=== PATIENT | male | born 1945 | race Caucasian/White ===

== ENCOUNTER 2019-03-14 09:52 | Emergency (ER) | payer MEDICARE ==
[~2019-03-14] VITALS: Ht 165.1 cm; Wt 72.6 kg
[~2019-03-14 09:52] MED LIST: AMIT50; AMIT75 PO; ASPI325; ASPI81CH; AZAT50; CLOP75; DIAZ10 PO; HYDACE5 PO; IBUP800 PO; Isosorbide Dini30 MG PO; Isosorbide Mono30 MG; METO25ER PO; METO50; OMEP20ER PO; PRAV40 PO; PRED10 PO; RABE20; RANO500T PO; ROSU10TA PO; SUCR1 PO
[2019-03-14] MEDS ORDERED: OXYC5 PO (11:11)
[2019-03-14] MEDS ORDERED: QUETIAPINE FUMA25 MG PO (11:11)
[2019-03-14] MEDS ORDERED: Isosorbide Mono60 MG PO (11:11)
[2019-03-14] MEDS ORDERED: CELECOXIB200 MG PO (11:12)
[2019-03-14] MEDS ORDERED: PLAVIX75 MG PO (11:13)
[2019-03-14] MEDS ORDERED: Clonazepam0.5 MG PO (11:13)
[2019-03-14] MEDS ORDERED: PANTOPRAZOLE SO40 M2 PO (11:13)
[2019-03-14] MEDS ORDERED: COQ-10100 MG PO (11:14)
[2019-03-14] MEDS ORDERED: Fibercon625 MG PO (11:14)
[2019-03-14] MEDS ORDERED: LINZESS145 MCG PO (11:15)
== END 2019-03-14 12:44 | disposition home or self-care (01) ==
LOC: ER 09:52
DX: K59.00 Constipation, unspecified (principal); K21.9 Gastro-esophageal reflux disease without esophagitis; E78.5 Hyperlipidemia, unspecified; I25.10 Atherosclerotic heart disease of native coronary artery without angina pectoris; Z91.09 Other allergy status, other than to drugs and biological substances; Z79.899 Other long term (current) drug therapy; Z79.82 Long term (current) use of aspirin
CPT/HCPCS: 74018; 99283-25

== ENCOUNTER → 2022-07-24 | Outpatient (CLI) | payer OTHER ==
[~2022-07-24] MED LIST changes: +CELECOXIB200 MG PO; +COQ-10100 MG PO; +Clonazepam0.5 MG PO; +Cyclobenzaprine5 MG PO; +Fibercon625 MG PO; +Isosorbide Mono60 MG PO; +LINZESS145 MCG PO; +Norco 5-325 Ta1 EACH PO; +OXYC5 PO; +PANTOPRAZOLE SO40 M2 PO; +PLAVIX75 MG PO; +QUETIAPINE FUMA25 MG PO
== END | disposition home or self-care (01) ==
LOC: LAB 09:20 → LAB SHORT 09:20
DX: L02.214 Cutaneous abscess of groin (principal)
CPT/HCPCS: 87070; 87205